=== PATIENT | male | born 1950 | race Caucasian/White ===

== ENCOUNTER → 2023-12-16 | Emergency (ER) | payer OTHER, MEDICAID ==
[~2023-12-16] VITALS: Ht 167.6 cm; Wt 63.0 kg
[2023-12-16 03:39] VITALS: BP 140/98; PULSE 97; RESP 16; TEMP 98; O2SAT 96
== END | disposition left against medical advice (07) ==
LOC: ER 03:37
DX: R42 Dizziness and giddiness (principal); Z53.21 Procedure and treatment not carried out due to patient leaving prior to being seen by health care provider
CPT/HCPCS: 82948; 93005; 99281